=== PATIENT | female | born 1990 | race Caucasian/White ===

== ENCOUNTER 2018-07-25 10:54 | Emergency (ER) | payer BC ==
[~2018-07-25] VITALS: Ht 152.4 cm; Wt 42.6 kg
[2018-07-25 11:20] VITALS: BP_SYST 120
--- NOTE | 2018-07-25 11:28 | NUR ---
Patient to ER bed 07 to gown for evaluation. Side rails up.
--- NOTE | 2018-07-25 11:30 | NUR ---
Pt brought by self, A&Ox4, pt presents to ER with lower abdominal pain , nausea, cramping and blood in the stool, no active vomiting noted, skin pink and warm, cap refill <3. pt states she was referred for a CT scan but awaiting for appointment, will continue to monitor.
--- NOTE | 2018-07-25 11:50 | NUR ---
Dr George at bedside examinig patient
[2018-07-25] MEDS ORDERED: NACL 0.9% 1,000 ML IV ONE (12:25)
[2018-07-25 12:26] LABS: BASOPHILS % (AUTO) 0.9 % (0.0-2.0); EOSINOPHILS % (AUTO) 0.1 % (0.0-4.0); HEMATOCRIT 41.4 % (36-48); HEMOGLOBIN 13.2 g/dL (12.0-16.0); LYMPHOCYTES # (AUTO) 0.5 K/uL (1.0-5.5); MEAN CORPUSCULAR HEMOGLOBIN 29 pg (27-31); MEAN CORPUSCULAR HGB CONC 32 % (32-36); MEAN CORPUSCULAR VOLUME 91 fL (79.0-98.0); MONOCYTES # (AUTO) 0.5 K/uL (0.0-1.0); MONOCYTES % (AUTO) 9.2 % (1.7-9.3); NEUTROPHILS # (AUTO) 4.4 K/uL (1.8-7.7); NEUTROPHILS % (AUTO) 79.8 % (40.0-70.0); PLATELET COUNT (AUTO) 180 K/uL (130-430); RED BLOOD CELL COUNT(AUTO) 4.55 MIL/uL (4.2-6.2); RED CELL DISTRIBUTION WIDTH 12.1 % (9.0-15.0); WHITE BLOOD COUNT (AUTO) 5.4 K/uL (4.8-10.8)
[2018-07-25] MEDS ORDERED: ONDANSETRON HCL 4 MG/2 ML VIAL IVP ONE (12:30)
[2018-07-25] MEDS ORDERED: MORPHINE 2 MG/ML INJ. SYRINGE IVP ONE (12:30)
[2018-07-25 12:41] LABS: CALCIUM 9.9 mg/dL (8.4-11.0); CREATININE 0.65 mg/dL (0.55-1.30); POTASSIUM 3.7 mmol/L (3.5-5.1)
[2018-07-25 12:46] LABS: ALBUMIN 4.2 g/dL (3.4-4.8); TOTAL BILIRUBIN 1.6 mg/dL (0.0-1.0)
--- NOTE | 2018-07-25 13:13 | NUR ---
Pt medicated as ordered, well tolerated.
[2018-07-25 13:43] LABS: BILIRUBIN,URINE NEGATIVE (NEGATIVE); BLOOD, URINE 1+ (NEGATIVE); CLARITY/URINE CLEAR (CLEAR); COLOR,URINE YELLOW (YELLOW); GLUCOSE,URINE NEGATIVE (NEGATIVE); KETONES,URINE 2+ (NEGATIVE); LEUKOCYTE ESTERASE ,URINE NEGATIVE (NEGATIVE); NITRITE, URINE NEGATIVE (NEGATIVE); PROTEIN URINE NEGATIVE (NEGATIVE); UROBILINOGEN,URINE 0.2 (0.2-1.0)
[2018-07-25 14:03] LABS: WBC,URINE 0-3 /HPF (0-3)
[2018-07-25 14:04] LABS: BACTERIA,URINE RARE /HPF (None Seen)
--- NOTE | 2018-07-25 14:30 | NUR ---
Pt complains of Nausea, Dr George notified
[2018-07-25] MEDS ORDERED: ONDANSETRON 4 MG ODT TAB PO ONE (14:45)
--- NOTE | 2018-07-25 15:00 | NUR ---
Pt medicated for nausea , well tolerated,VS WNL, afebrile,respirations even and unlabored.
[2018-07-25 15:15] VITALS: BP_SYST 120
--- NOTE | 2018-07-25 15:15 | NUR ---
Patient given written and verbal discharge instructions and verbalizes understanding. ER MD Dr. George discussed with patient the results and treatment provided. Patient in stable condition. ID arm band removed. IV catheter removed intact and dressing applied, no active bleeding. Rx of Reglan given. Patient educated on pain management and to follow up with PMD within 2-3 days. Pain Scale 0/10. Opportunity for questions provided and answered. Medication side effect fact sheet provided.
== END 2018-07-25 15:15 | disposition home or self-care (01) ==
LOC: SED 10:54
DX: G89.29 Other chronic pain (principal); R10.9 Unspecified abdominal pain; F41.9 Anxiety disorder, unspecified; F32.9 Major depressive disorder, single episode, unspecified
CPT/HCPCS: 36415; 76700; 80053; 81000; 81025; 83690; 85025; 96374; 96375; 99285; J2270; J2405; J7030; Q0162